=== PATIENT | male | born 1995 | race Caucasian/White ===

== ENCOUNTER 2016-06-01 11:19 | Emergency (ER) | payer SELFPAY ==
[~2016-06-01] VITALS: Ht 182.9 cm; Wt 63.5 kg
[~2016-06-01 11:19] MED LIST: POLY10O LEFT EYE
[2016-06-01 11:21] VITALS: BP 145/77; PULSE 82; RESP 16; TEMP 98; O2SAT 99
--- NOTE | 2016-06-01 11:50 | PD ---
HPI Chief Complaint: Laceration/Skin Injury Time Seen by Provider: 11:50 Travel History International Travel<30 days: No Contact w/Intl Traveler<30days: No Traveled to known affect area: No History of Present Illness HPI 20-year-old male presents to the emergency department complaint of laceration to the distal aspect of his left index finger obtained from a saw today. Denies paresthesias, loss of sensation, decreased range of motion, decreased strength to the affected finger. Denies fever, chills, nausea, vomiting. Is not up-to-date on his tetanus vaccination. Has not taken any medications try any treatments to date symptoms. Has applied pressure to control bleeding. Denies allergies. History of asthma. No other modifying factors or associated signs and symptoms. PFSH Past Medical History ADD: Yes ADHD: Yes Asthma: Yes Bipolar Disorder: Yes Anxiety: Yes Depression: Yes Developmental Delay: No Diminished Hearing: No Respiratory: Yes (ASTHMA) Immunizations Current: Yes Seizures: Yes (FEBRILE ) Social History Alcohol Use: Yes (RARELY) Tobacco Use: Yes Substance Use: No (Denies Marijuanna in 2-3 weeks. ) Allergies-Medications (Allergen,Severity, Reaction): Coded Allergies: No Known Allergies (Verified , 06/01/16) Reported Meds & Prescriptions Reported Meds & Active Scripts Active Ibuprofen 800 Mg Tab 800 Mg PO Q6HR PRN Review of Systems Except as stated in HPI: all other systems reviewed are Neg Physical Exam Narrative GENERAL: Well-nourished, well-developed male patient, in no acute distress SKIN: Warm and dry. Left index finger with superficial laceration/skin tear to the distal aspect; with full range of motion at all joints; good opposition, less than 3 second cap refill, sensory intact. Left upper extremity supple and non-tense with 2+ radial pulses and sensory intact without erythema or edema. HEAD: Atraumatic. Normocephalic. EYES: Pupils equal and round. No scleral icterus. No injection or drainage. ENT: Mucosa pink and moist. Airway patent. NECK: Trachea midline. CARDIOVASCULAR: Regular rate. RESPIRATORY: No accessory muscle use. GASTROINTESTINAL: Flat. MUSCULOSKELETAL: No obvious deformities. No clubbing. No cyanosis. No edema. NEUROLOGICAL: Awake and alert. Oriented 3. No obvious cranial nerve deficits. Motor grossly within normal limits. Normal speech. PSYCHIATRIC: Appropriate mood and affect; insight and judgment normal. Data Data Last Documented VS Vital Signs Date Time Temp Pulse Resp B/P Pulse Ox O2 Delivery O2 Flow Rate FiO2 06/01/16 11:21 98.0 82 16 145/77 99 Room Air Orders Finger ([id number]) (06/01/16 11:48) Tetanus/Diphtheria Tox Adult (Tetanus/Di (06/01/16 12:00) Bupivacaine Pf 0.5% Inj (Marcaine Pf 0.5 (06/01/16 12:00) Lidocaine 1% Inj (50 Ml) (Xylocaine 1% I (06/01/16 12:00) MDM Medical Decision Making Medical Screen Exam Complete: Yes Emergency Medical Condition: Yes Medical Record Reviewed: Yes Differential Diagnosis Laceration, contusion, abrasion Narrative Course 20-year-old male with left second finger laceration obtained from a saw. Tetanus updated in the ER. Left second finger x-ray ordered. 1229: Left hand second digit x-ray concludes no fracture involved with the laceration. Procedures Procedure Narrative LACERATION LOCATION: Distal aspect of the left index finger LENGTH: 0.5 cm NUMBER OF STITCHES/CARISSA: Zero; closed with Dermabond REPAIR: The area of the laceration was prepped with Betadine and sterilely draped. The left index finger was digitally blocked with 0.5% bupivacaine and and 1% lidocaine. The wound was copiously irrigated and explored without evidence of foreign body, tendon injury or neurovascular injury. The wound was closed using Dermabond. This was a single layer repair. A sterile dressing was applied. The patient was advised to keep the dressing clean and dry. Patient tolerated the procedure well. Diagnosis Primary Impression: Laceration of left index finger Referrals: Primary Care Physician Patient Instructions: Care For Your Stitches (ED), Finger Laceration (ED), General Instructions Departure Forms: Tests/Procedures, Work Release Enter return to work date: Jun 02, 2016 Additional Instructions: Keep area clean and dry Limit left index finger activity to decrease risk of sutures coming undone Ibuprofen or Tylenol as directed and as needed for pain and inflammation Ice pack to area as needed to decrease pain Return to the emergency department or follow-up with your primary care provider in 7-10 days for suture removal Follow up with primary care provider Return to the emergency department immediately with worsening of symptoms, particularly if reddened streaks up or down the affected extremity from the suture site, fever, numbness/tingling in the affected extremity, loss of sensation in the affected extremity, severe swelling of the affected Med/Other Pt SpecificInfo: Prescription(s) given Scripts Ibuprofen 800 Mg Omb008 Mg PO Q6HR PRN (PAIN) #30 TAB Ref 0 Prov:Serena Merida 06/01/16 Disposition: 01 DISCHARGE HOME Condition: Stable Serena Merida Jun 01, 2016 11:50 Serena Merida Jun 01, 2016 11:50 Serena Merida Jun 01, 2016 11:50
[2016-06-01] MEDS ORDERED: BUPIVACAINE HCL PF 0.5% 10 ML VIAL INFIL ONE (12:00)
[2016-06-01] MEDS ORDERED: LIDOCAINE HCL 1% 50 ML VIAL INFIL ONE (12:00)
[2016-06-01] MEDS ORDERED: TETANUS/DIPHTHERIA TOXOID ADULT 0.5 ML VIAL IM ONE (12:00)
--- NOTE | 2016-06-01 12:22 | RADRPT ---
EXAM DATE/TIME: 06/01/2016 12:03 [facility] COMPARISON: No previous studies available for comparison. INDICATIONS : Left second digit laceration distal tip MEDICAL HISTORY : None. SURGICAL HISTORY : None. ENCOUNTER: Initial ACUITY: 1 day PAIN SCORE: 10/10 LOCATION: Left upper extremity FINDINGS: There is in laceration distal talked second digit without fracture or foreign body. CONCLUSION: Laceration as described above. Williams Collado MD FACR on June 01, 2016 at 12:20 Board Certified Radiologist. This report was verified electronically.
[2016-06-01] MEDS ORDERED: IBUP800T23 PO (12:30)
[2016-06-01] MEDS ORDERED: CEPH-460 PO (12:30)
== END 2016-06-01 12:52 | disposition home or self-care (01) ==
LOC: NEPB 11:19
DX: S61.211A Laceration without foreign body of left index finger without damage to nail, initial encounter (principal); J45.909 Unspecified asthma, uncomplicated; W27.0XXA Contact with workbench tool, initial encounter; Z72.0 Tobacco use; Z23 Encounter for immunization
CPT/HCPCS: 12001; 73140; 90471; 90714

== ENCOUNTER 2016-12-17 07:01 | Emergency (ER) | payer SELFPAY ==
[~2016-12-17] VITALS: Ht 182.9 cm; Wt 78.0 kg
[~2016-12-17 07:01] MED LIST changes: +IBUP800T23 PO; -POLY10O LEFT EYE
[2016-12-17 07:03] VITALS: BP 134/79; PULSE 97; RESP 20; TEMP 98.8; O2SAT 97
--- NOTE | 2016-12-17 07:15 | PD ---
HPI . headache worse x 1 day Chief Complaint: Headache Time Seen by Provider: 07:16 Travel History International Travel<30 days: No Contact w/Intl Traveler<30days: No Traveled to known affect area: No History of Present Illness HPI 20-year-old male with history of headaches in the past here with complaint of headache since yesterday. Patient says that he has a headache located mainly in the frontal area. He admits to increased nasal congestion and sinus pressure. He has not taken any [id number] medications other than ibuprofen, which did not provide much relief. Denies any fever or chills. He has no other complaints PFSH Past Medical History ADD: Yes ADHD: Yes Asthma: Yes Bipolar Disorder: Yes Anxiety: Yes Depression: Yes Developmental Delay: No Diminished Hearing: No Respiratory: Yes (ASTHMA) Immunizations Current: Yes Seizures: Yes (FEBRILE ) Social History Alcohol Use: Yes (RARELY) Tobacco Use: Yes Substance Use: No (Denies Marijuanna in 2-3 weeks. ) Allergies-Medications (Allergen,Severity, Reaction): Coded Allergies: No Known Allergies (Verified , 06/01/16) Reported Meds & Prescriptions Reported Meds & Active Scripts Active Augmentin (Amoxicillin-Clavulanate) 875-125 Mg Tab 1 Tab PO BID 10 Days Ibuprofen 800 Mg Tab 800 Mg PO Q6HR PRN Review of Systems General / Constitutional: No: Fever Eyes: No: Visual changes HENT: Positive: Headaches, Congestion Cardiovascular: No: Chest Pain or Discomfort Respiratory: No: Shortness of Breath Gastrointestinal: No: Abdominal Pain Genitourinary: No: Dysuria Musculoskeletal: No: Pain Skin: No Rash Neurologic: No: Weakness Psychiatric: No: Depression Endocrine: No: Polydipsia Hematologic/Lymphatic: No: Easy Bruising Physical Exam Narrative GENERAL: AAO x 3, no acute distress, Well-nourished, well-developed patient. SKIN: Warm and dry. No visible rashes or bruising. HEAD: Normocephalic and atraumatic. EYES: No scleral icterus. No injection or drainage. EOM intact, PERRLA ENT: No nasal drainage noted. Mucous membranes pink. Airway patent. Positive frontal and maxillary sinus tenderness. No oropharynx abnormality. NECK: Supple, trachea midline. No JVD. No lymphadenopathy CARDIOVASCULAR: Regular rate and rhythm without murmurs, gallops, or rubs. RESPIRATORY: Breath sounds equal bilaterally. No accessory muscle use. No rhonchi or rales. GASTROINTESTINAL: Visual inspection normal EXTREMITIES: No cyanosis or edema. BACK: No obvious deformity. NEURO: CN II-12 intact, pass worker strength normal b/l, UE and LE 5/5, no focal deficits PSYCH: AAO x 3, normal affect. Data Data Last Documented VS Vital Signs Date Time Temp Pulse Resp B/P Pulse Ox O2 Delivery O2 Flow Rate FiO2 12/17/16 07:03 98.8 97 20 134/79 97 Room Air MDM Medical Decision Making Medical Screen Exam Complete: Yes Emergency Medical Condition: Yes Medical Record Reviewed: Yes Differential Diagnosis Acute sinusitis, sinus headache, less likely migraine, less likely tension headache Narrative Course 20-year-old male here with what appears to be acute sinusitis. On examination his findings are consistent with sinusitis. I think that his sinus issues are causing his headache.. I will treat with course of antibiotics. I recommend [id number] Sudafed. I advised him if his symptoms continue or worsen go to the nearest emergency department. I also advised him to follow-up with his primary care provider. Patient verbalized understanding of instructions, questions were answered, and thanked me for their care. I advised them if their condition worsens, please return to the nearest emergency room for further care. Diagnosis Primary Impression: Acute sinusitis Qualified Code: J01.90 - Acute non-recurrent sinusitis, unspecified location Additional Impression: Sinus headache Patient Instructions: General Instructions, Sinusitis (ED) Additional Instructions: Please return to emergency department if your symptoms return or worsen. Follow up with your primary care provider. Take medications as prescribed. Try [id number] Sudafed as we discussed. Med/Other Pt SpecificInfo: Prescription(s) given Scripts Amoxicillin-Clavulanate (Augmentin)875-125 Mg Tab1 Tab PO BID 10 Days Prov:Leonora Gonzalez DO 12/17/16 Disposition: 01 DISCHARGE HOME Condition: Stable Liyah Hand Dec 17, 2016 07:15
[2016-12-17] MEDS ORDERED: AUGM875T3 PO (07:19)
== END 2016-12-17 07:45 | disposition home or self-care (01) ==
LOC: NEPK 07:01
DX: J01.90 Acute sinusitis, unspecified (principal); Z72.0 Tobacco use
CPT/HCPCS: 99283